=== PATIENT | male | born 1990 | race Caucasian/White ===

== ENCOUNTER 2017-02-18 20:06 | Emergency (ER) | payer SELFPAY ==
[~2017-02-18] VITALS: Ht 185.4 cm; Wt 84.1 kg
[2017-02-18 20:10] VITALS: TEMP 99.5
[2017-02-18 21:32] LABS: BASO # 0.1 (0.0-0.2); BASO % 0.8 % (0.0-2.0); EOS # 0.1 (0.0-0.7); EOS % 0.7 % (0-4.0); GRAN # 4.3 (1.4-6.5); GRAN % 60.6 % (42.2-75.2); HEMATOCRIT 46.8 % (42.0-52.0); HEMOGLOBIN 16.4 g/dl (13.5-18.0); LYMPH # 2.2 (1.2-3.4); LYMPH % 30.8 % (20.0-51.0); MEAN CELL VOLUME 88 fl (80.0-100.0); MEAN CORPUSCULAR HEMOGLOBIN 31 pg (27.0-31.0); MEAN CORPUSCULAR HGB CONC 35 g/dl (33.0-37.0); MEAN PLATELET VOLUME 9.4 fl (7.4-10.4); MONO # 0.5 (0.1-0.6); PLATELET COUNT 192 K/mm3 (130-400); WHITE BLOOD COUNT 7.1 K/mm3 (4.8-10.8)
[2017-02-18 21:45] LABS: ALANINE AMINOTRANSFERASE 25 U/L (21-72); ALBUMIN 4.8 gm/dL (3.5-5.0); ALKALINE PHOSPHATASE 57 U/L (50-136); ANION GAP 14 mmol/L (7-16); BLOOD UREA NITROGEN 12 mg/dL (9-20); CALCIUM 9.6 mg/dL (8.4-10.2); CARBON DIOXIDE 25 mmol/L (22-30); CHLORIDE 100 mmol/L (98-107); CREATININE, serum 0.89 mg/dL (0.66-1.25); GLUCOSE 80 mg/dL (74-106); LIPASE 90 U/L (23-300); POTASSIUM 3.7 mmol/L (3.4-5.0); SODIUM 138 mmol/L (137-145); TOTAL PROTEIN 8.1 gm/dL (6.4-8.2)
[2017-02-18 21:46] LABS: C-REACTIVE PROTEIN < 0.5 mg/dL (0.0-0.9)
[2017-02-18 22:34] LABS: PH 5 (5-8); SQUAMOUS EPITHELIAL None Seen /hpf; URINE APPEARANCE Clear; URINE BACTERIA Rare /hpf; URINE BILIRUBIN Negative (NEGATIVE); URINE BLOOD 1+ (NEGATIVE); URINE COLOR Yellow; URINE GLUCOSE Negative (NEGATIVE); URINE KETONE Trace (NEGATIVE); URINE RBC 0-2 /hpf; URINE UROBILINOGEN Negative (NEGATIVE); URINE WBC 0-2 /hpf
[2017-02-18 22:58] VITALS: BP 138/74; PULSE 91
== END 2017-02-18 22:58 | disposition home or self-care (01) ==
LOC: COL.ER 20:06
PROVIDERS: Nurse Practitioner
DX: R04.2 Hemoptysis (principal); R10.11 Right upper quadrant pain; R10.31 Right lower quadrant pain; F17.200 Nicotine dependence, unspecified, uncomplicated
CPT/HCPCS: J7030